=== PATIENT | male | born 1950 | race Caucasian/White ===

== ENCOUNTER 2024-01-14 21:50 | Emergency (ER) | payer MEDICARE, OTHER, SELFPAY ==
[2024-01-14 21:52] VITALS: BP 128/59
[2024-01-14 22:21] VITALS: BP 127/55
[2024-01-14 23:00] VITALS: BP 121/50
--- NOTE | 2024-01-14 23:52 | ED.GENMED ---
History of Present Illness
General
Chief Complaint: Chest Pain
Source: patient
Exam Limitations: none
Time Seen by Provider: 01/14/24 23:31
History of Present Illness
History of Present Illness:
This is a 73 year old male that comes in with c/o chest pain. States that he has been fighting for a month with severe abd pain. States that this goes up into the middle of his chest and he has had this all week. States that he thought he may be
having heart attack. State that he also thought he might be dehydrated all week. States that he has had diarrhea for a month and he has right sided abd pain. States that he has lost weight over the past 4-6 months. States that in the morning he
feels that he can't talk as there is so much mucous in his throat. States that today he had a fever of 101.5. States that he has constant abd pain, chest pain, headache daily that starts in the back of his neck and goes up to his forehead. Denies
any chills, SOB, nausea, vomiting, dizziness, urinary burning.
Past History
Past History
ED Past Medical History: GERD, HTN, Hypercholesterolemia, [place] and Other (Migraine, Fatty liver)
ED Past Surgical History: Cardiac (Stent X 6, CABG)
Social History
Tobacco: Non-smoker
Alcohol: None
Personal:
Living: with family
Review of Systems
Review of Systems
All Other Systems: ROS reviewed and negative except as documented in HPI and ROS
Constitutional: Reports fever; Denies chills
EENT: Reports no symptoms
Respiratory: Reports no symptoms; Denies cough or trouble breathing
Cardiac: Reports chest pain
ABD/GI: Reports abdominal pain and diarrhea; Denies nausea or vomiting
: Reports no symptoms; Denies dysuria, frequency or urgency
Musculoskeletal: Reports no symptoms
Skin: Reports no symptoms
Neurological: Reports headache; Denies dizzy
Psychiatric: Reports no symptoms
Phy Exam
General Physical Exam
General Presentation: no apparent distress
General age: appears stated age
General Skin: warm and dry
General Habitus: elderly
General Mental: alert
General Hydration: appears well hydrated
ENT Exam
ENT Exam: TM's normal, pharynx normal and neck supple
Eye Exam
Eye Exam: EOMI
Cardiovascular Exam
Cardiovascular Exam: regular rate/rhythm, no edema and normal peripheral pulses
Pulmonary Exam
Pulmonary Exam: lungs clear, no respiratory distress, no rales, chest non tender, no crackles, no rhonchi, no wheezing and no cough
Gastrointestinal Exam
Gastrointestinal Exam: normal bowel sounds, non tender, soft, no organomegaly, no pulsatile mass and non distended
Musculoskeletal Exam
Musculoskeletal Exam: full ROM and no edema
Skin Exam
Skin Exam: normal color, warm/dry, no rash and no petechia
Psychiatric Exam
Psychiatric Exam: normal mood/affect
Scores
Heart Score for Chest Pain Patients
STEMI patient?: No
History: Slightly or Non-Suspicious
ECG: Normal
Age: >/= 65 years
Risk Factors: >/= 3 Risk Factors or History of CAD
Troponin: </= Normal Limit
Heart Score for Chest Pain Patients: 4
Heart Score Risk: 20.3% MACE over next 6 weeks
Course
Orders/Labs/Results
Orders:
Orders
01/14/24 21:51
ECG [Electrocardiogram (*1)] Urgent
Reason for Study: Chest Pain
EKG- Treatment ONCE
01/14/24 23:51
Complete Blood Count/With Diff Urgent
Comprehensive Metabolic Panel Urgent
NT-proBNP Urgent
Troponin I Urgent
Pantoprazole [Protonix IV] 40 mg IV NOW STA
01/14/24 23:54
STOOL [C difficile Antigen & Toxins] Urgent
REMI Source: Feces/Stool
Specimen Description:
Stool Culture Urgent
REMI Source: Feces/Stool
Specimen Description:
Stool For WBC Urgent
REMI Source: Feces/Stool
Specimen Description:
01/14/24 23:55
COVID-19 Antigen Urgent
Source: Nasal Swab
01/14/24 23:56
0.9% Sodium Chloride 1000 ml [Nss] 1,000 ml IV BOLUS
01/15/24 00:00
CT Abd/pelvis W Iv Cont Urgent
Reason For Exam: abd pain, diarrhea
CR Chest - 2 Views Urgent
Reason For Exam: Chest pain
01/15/24 00:06
Ferritin Urgent
Comment: ADD ON
01/15/24 00:13
Add On- LAB Urgent
Tests Added?: Ferritin
01/15/24 00:27
Sucralfate Suspension [Carafate Suspension] 1 gm PO NOW STA
01/15/24 03:03
Troponin I Urgent
01/15/24 07:30
Sucralfate Suspension [Carafate Suspension] 1 gm PO ACHS
Abnormal Lab Results
01/15/24
00:06
RBC 3.86 L 10^6/uL
(4.70-6.10)
Hgb 11.3 L g/dL
(13.0-18.0)
Hct 32.0 L %
(39.0-52.0)
Absolute Lymphs (auto) 0.8 L 10^3/uL
(1.2-3.4)
Lymphocytes % 11.5 L %
(20.5-51.1)
Sodium 132 L mmol/L
(135-145)
Glucose 117 H mg/dl
(70-99)
Calcium 7.8 L mg/dl
(8.4-10.2)
Ferritin 610.0 H ng/ml
(17.9-464.0)
AST 73 H U/L
(17-59)
ALT 119 H U/L
(0-50)
Alkaline Phosphatase 128 H U/L
(38-126)
Total Protein 5.2 L g/dl
(6.3-8.2)
Albumin 2.7 L g/dl
(3.5-5.0)
01/15/24 00:06
01/15/24 00:06
H/H slightly low. Sodium slightly low. Glucose nonfasting. Hypocalcemia, Ferritin elevation. AST/ALT elevation. Alk phos slightly elevated. Total protein low Albumin low. Troponin0.014, Pro-BNP 1720. COVID negative,
Second Troponin <0.012
Vital Signs
Initial and Last Documented VS:
Initial Vital Signs
Temp Pulse Resp BP Pulse Ox
99.9 F 78 20 128/59 97
01/14/24 21:52 01/14/24 21:52 01/14/24 21:52 01/14/24 21:52 01/14/24 21:52
Last Documented Vital Signs
Temp Pulse Resp BP Pulse Ox
99.9 F 66 36 124/54 96
01/14/24 21:52 01/15/24 02:30 01/15/24 01:00 01/15/24 02:00 01/15/24 02:30
MDM/Problems Addressed
Differential Diagnosis Includes:
Colitis GERD, Coronary syndrome
MDM/Problems Addressed:
This is a 73 year old male that comes in with c/o chest pain and abd pain. States that he has abd pain that moves up into the center of his chest. States tht this has been going on for weeks. States that he has lost weight and has diarrhea.
Will check labs. CT abd, give IV fluids and treat his Reflux.
CT cont- calcification of the distal abdominal aorta. NO acute osseous abnormality. Grade 1 anterolisthesis of L4 on L5 in the setting of degenerative disc and facet disease. Minimal stepwise retrolisthesis of L2 on L3 on L4. Enostosis in the left
femoral neck.
Back into see patient and family. Reviewed patient abs and CT scan. Explained that there is an enteritis but this will go away on its own. Will repeat Troponin and if this is normal patient will be discharged. Explained that he can follow up with
the GI specialist and his [employer] And [employer] Specialist for further evaluation. Patient states that since he was given the medication here he not long has any abd pain.
Chronic conditions affecting care:
GERD,
Chronic conditions affecting care: CAD
Acute Exacerbation and/or Progression of Chronic Illness:
GERD
Acute Exacerbation and/or Progression of Chronic Illness: CAD
*Radiology
Radiology exam reviewed: preliminary read by ED provider (Chest- Negative for active disease. ), radiology read reviewed (CT night hawk-Th small bowel mesentery apears diffusely hyperemic. Given patient's ymtoms, this islikely due to a mild
enteritis. Normal appendix. Prior sigmoid colon resection. Mild diverticulosis without diverticulitis or colitis. No intraperitoneal free air, free fluid or abscess. Additional ), all reviewed NAD by ED Provider (CT cont- Findings; The vislualized
lung bases are clear. Mild cardiomegaly with coronary artery calcification. NOrmal liver, pancreas, spleen and adrenal glands. Mild reactive third spacing into the wall of the nondistended gallbladder; no evidence of radiopaque gallstones or biliary
ductal dilation) and other (Ct cont-to suggest choledocholithiasis. No hydronephrosis or ureterolithiasis. Unremarkable urinary bladder. Mesh repair to the lower abd ventral hernia. Small recurrent bilateral fat-containing inguinal hernias. No abd
aortic aneurysm or retroperitoneal hemorrhage. Circumferential atherosclerotic )
*Pulse Oximetry
Patient hypoxic: no
*EKG
Interpreted by ED Provider?: Yes
Heart Rate: 75
Rate: normal
Rhythm: sinus
[place]: normal axis
Interval: normal interval
QRS Pattern: normal QRS
Ischemia: no ischemia
*Glaze Wiper Interpretation
Rate: normal
Heart Rate: 68
Rhythm: sinus
*Critical Care Note
Total Time (30-74mins, 75-104mins- exclusive of procedures): Not Applicable
ED Attending Note
-
Portions of this chart may have been created with voice recognition software.� Occasional wrong word or��sound alike� substitutions may have occurred due to the inherent limitations of voice recognition software.
Discharge Plan
Departure
Patient Disposition: Home (Routine Discharge)
Date of Disposition: 01/15/24
Time of Disposition: 03:54
Patient with high blood pressure during this ER visit?: No
Condition: Good
Covid-19: Negative COVID-19
Discharge Problem:
Chest pain, Gastroesophageal reflux disease, Enteritis
Instructions: Acid Reflux and GERD in Adults (DC), Chest Pain NON-[facility]P Oil And [employer] Specialist Follow Up
Prescriptions:
No Action
pantoprazole 40 mg Tablet,Delayed Release (Dr/Ec)
40 mg PO DAILY
losartan 25 mg Tablet
25 mg PO DAILY
acetaminophen-codeine 300-30 mg Tablet
famotidine 20 mg Tablet
20 mg PO HS
clopidogrel 75 mg Tablet
75 mg PO DAILY
sucralfate 1 gram Tablet
fluticasone propionate [Allergy Relief (fluticasone)] 50 mcg/actuation [place],Suspension
1 spray INTRANASAL DAILY
diazepam 5 mg Tablet
5 mg PO HS PRN (Reason: sleep)
topiramate 25 mg Tablet
25 mg PO DAILY
mirtazapine 7.5 mg Tablet
7.5 mg PO HS
aspirin 81 mg Tablet
81 mg PO DAILY
folic acid 1 mg Tablet
1 mg PO DAILY
loratadine 10 mg Tablet
10 mg PO DAILY
Referrals:
Mercy Peng MD [Family Provider] -
Ronnie Wharton MD [Active] - Call in 1-3 days for appt
Activity Restrictions/Additional Instructions:
As discussed, your blood work shows that your liver enzymes are elevated. This goes along with a fatty liver. There is Enteritis on the CT scan and this can cause diarrhea. This will go away on its own. Please increase your water intake to 8-8oz
glasses daily. Please follow up with your Oil And Gas Specialist and the GI specialist for further evaluation. Continue with your Protonix 40mg twice daily and your Carafate 1gm 1 hour before each meal and again at Bedtime. As long as you have diarrhea
please stay away form milk and milk products as this is hard for the gut to digest and will keep the diarrhea going. Simple food such as Rice, Potatoes and Chicken are easily digested. IF YOU HAVE INCREASED OR CHANGING PAIN, OR YOU HAVE ANY OTHER
CONCERNS PLEASE RETURN TO THE EMERGENCY ROOM.
Interventions
Interventions:
*Risk Screen - Suicide Last Done: 01/14/24 21:52
*General Assessment Last Done: 01/14/24 21:52
*Neglect/Abuse Screening Last Done: 01/14/24 21:52
ED- Fall Risk Assessment Last Done: 01/15/24 02:11
*ED COVID-19 Vaccine History Last Done: 01/15/24 02:11
ED- Cardiac Assessment Last Done: 01/14/24 23:45
Discharge Date and Time
Print Language: LATVIAN
[2024-01-15] MEDS: NSS 1000 IV (00:07)
[2024-01-15] MEDS: PROTONIX IV 40 MG IV (00:08)
[2024-01-15 00:17] LABS: % Basophils 0.4 % (0-2); % Eosinophils 4.2 % (0-6); % Immature Granulocytes 0.4 % (0-0.5); % Lymphocytes 11.5 % (20.5-51.1); % Monocytes 8.9 % (1.7-9.3); % Neutrophils 74.6 % (42.2-75.2); Absolute Eosinophils 0.3 10^3/uL (0-0.7); Absolute Lymphocytes 0.8 10^3/uL (1.2-3.4); Absolute Monocytes 0.6 10^3/uL (0.1-0.6); Absolute Neutrophils 5.4 10^3/uL (1.4-6.5); Hemoglobin 11.3 g/dL (13.0-18.0); Mean Corp Hgb Conc. 35.3 g/dL (33.0-37.0); Mean Corpuscular Hgb 29.3 pg (27.0-31.0); Mean Corpuscular Volume 82.9 fL (80.0-94.0); Mean Platelet Volume 9.6 fL (7.4-10.4); Nucleated Red Blood Cells % 0 % (-); Platelet Count 235 10^3/uL (130-400); Red Blood Cell Count 3.86 10^6/uL (4.70-6.10); Red Cell Dist. Width 13.2 % (11.5-14.5); White Blood Cell Count 7.2 10^3/uL (4.8-10.8)
[2024-01-15 00:30] LABS: ALT (SGPT) 119 U/L (0-50); AST (SGOT) 73 U/L (17-59); Albumin 2.7 g/dl (3.5-5.0); Alkaline Phosphatase 128 U/L (38-126); Blood Urea Nitrogen 20 mg/dl (9-20); Calcium 7.8 mg/dl (8.4-10.2); Carbon Dioxide 23 mmol/L (22-30); Chloride 104 mmol/L (98-107); Glucose 117 mg/dl (70-99); Potassium 4.5 mmol/L (3.5-5.1); Sodium 132 mmol/L (135-145); Total Bilirubin 0.5 mg/dl (0.2-1.3); Total Protein 5.2 g/dl (6.3-8.2); eGFR > 60.00
[2024-01-15 00:33] LABS: COVID-19 Antigen Negative (Negative)
[2024-01-15 00:41] LABS: NT-proBNP 1720 pg/ml; Troponin I 0.014 ng/ml
[2024-01-15] MEDS: CARAFATE SUSPENSION 1 GM PO (00:48)
[2024-01-15 01:00] VITALS: BP 114/46
[2024-01-15 02:00] VITALS: BP 124/54
[2024-01-15 03:49] LABS: Troponin I < 0.012 ng/ml
== END 2024-01-15 04:27 | disposition home or self-care (01) ==
LOC: EMR 21:50
PROVIDERS: Clinical Nurse Specialist Family Health; EMERGENCY PHYSICIAN Emergency Medicine; FAMILY PHYSICIAN Family Medicine
DX: R07.89 Other chest pain (principal); K21.9 Gastro-esophageal reflux disease without esophagitis; K52.9 Noninfective gastroenteritis and colitis, unspecified; I10 Essential (primary) hypertension; E78.00 Pure hypercholesterolemia, unspecified; I25.2 Old myocardial infarction; I25.10 Atherosclerotic heart disease of native coronary artery without angina pectoris; Z95.1 Presence of aortocoronary bypass graft; Z95.5 Presence of coronary angioplasty implant and graft
CPT/HCPCS: 99284; 96374; 96360; 71046; 74177; 80053; 82728; 83880; 84484; 85025; 87811; 93005; Q9967